=== PATIENT | male | born 2000 | race African-American/Black ===

== ENCOUNTER 2022-01-18 23:35 | Emergency (ER) | payer OTHER, MEDICAID ==
[~2022-01-18] VITALS: Ht 175.3 cm; Wt 68.0 kg
[2022-01-19] MEDS ORDERED: IBUPROFEN 600MG TABLET PO ONE (02:30)
[2022-01-19] MEDS ORDERED: BACITRACIN ZINC OINT UDPKT TOP ONE (02:30)
[2022-01-19] MEDS ORDERED: IBUP-2028 MT (03:58)
[2022-01-19 04:38] VITALS: BP 112/78
== END 2022-01-19 04:39 | disposition home or self-care (01) ==
LOC: ER 23:35
DX: S71.032A Puncture wound without foreign body, left hip, initial encounter (principal); W34.09XA Accidental discharge from other specified firearms, initial encounter; Y93.89 Activity, other specified; Y92.89 Other specified places as the place of occurrence of the external cause; Y99.8 Other external cause status
CPT/HCPCS: 72170; 99283

== ENCOUNTER 2022-01-25 09:01 | Emergency (ER) | payer OTHER, MEDICAID ==
[~2022-01-25] VITALS: Ht 182.9 cm; Wt 60.0 kg
[~2022-01-25 09:01] MED LIST: IBUP-2028 MT
[2022-01-25] MEDS ORDERED: ONDANSETRON HCL 4MG/2ML INJ IM ONE (09:30)
[2022-01-25] MEDS ORDERED: KETOROLAC 60MG/2ML VIAL IM ONE (09:30)
[2022-01-25 09:42] VITALS: BP 117/80
[2022-01-25] MEDS ORDERED: ONDANSETRON HCL 4MG/2ML INJ IM NR (09:45)
[2022-01-25] MEDS ORDERED: METO-293 MT (10:43)
== END 2022-01-25 11:49 | disposition home or self-care (01) ==
LOC: ER 09:01
DX: R10.13 Epigastric pain (principal); R11.2 Nausea with vomiting, unspecified; F12.90 Cannabis use, unspecified, uncomplicated; F10.90 Alcohol use, unspecified, uncomplicated; Y90.9 Presence of alcohol in blood, level not specified
CPT/HCPCS: 82962; 96372; 99284; J1885; J2405

== ENCOUNTER 2022-09-12 07:58 | Emergency (ER) | payer MEDICAID, OTHER ==
[~2022-09-12] VITALS: Ht 175.3 cm; Wt 68.0 kg
[~2022-09-12 07:58] MED LIST changes: +METO-293 MT
[2022-09-12 08:05] VITALS: BP 126/90
[2022-09-12] MEDS ORDERED: ONDANSETRON 4MG ODT PO STA (08:20)
[2022-09-12 08:55] LABS: BASOPHILS % 0.7 % (0.0-2.0); EOSINOPHILS % 0.4 % (0.0-5.0); HEMATOCRIT. 52.8 % (42.0-52.0); HEMOGLOBIN. 17.6 g/dL (14.0-18.0); LYMPHOCYTES % 22.5 % (20.0-50.0); MEAN CORPUSCULAR HEMOGLOBIN 27.5 pg (28.0-32.0); MEAN CORPUSCULAR VOLUME 82.2 fL (80.0-94.0); MEAN PLATELET VOLUME 6.8 fl (7.4-10.4); NEUTROPHILS % 69.4 % (40.0-76.0); PLATELET 368 x1000/uL (130-400); RED BLOOD CELL COUNT 6.42 mill/uL (4.7-6.1); RED CELL DISTRIBUTION WIDTH 14.8 % (11.6-14.6)
[2022-09-12 09:00] LABS: CHLORIDE 94 mEq/L (98-107)
[2022-09-12] MEDS ORDERED: MAGNESIUM/ALUMINUM HYDROXIDE/SIMETHICONE 30ML UDC PO STA (09:30)
[2022-09-12] MEDS ORDERED: DICYCLOMINE 10 MG/5 ML ORAL SYR PO STA (09:30)
[2022-09-12] MEDS ORDERED: VISCOUS LIDOCAINE 2% 15 ML UDC PO STA (09:30)
[2022-09-12] MEDS ORDERED: ONDA4TAB11 PO (09:34)
== END 2022-09-12 10:23 | disposition home or self-care (01) ==
LOC: ER 08:19
DX: K29.70 Gastritis, unspecified, without bleeding (principal); F12.10 Cannabis abuse, uncomplicated
CPT/HCPCS: 36415; 80053; 83690; 85025; 99283; Q0162

== ENCOUNTER 2022-09-12 17:22 | Emergency (ER) | payer MEDICAID ==
[~2022-09-12] VITALS: Ht 175.3 cm; Wt 68.0 kg
[~2022-09-12 17:22] MED LIST changes: +ONDA4TAB11 PO
[2022-09-12 17:35] VITALS: BP 135/99; PULSE 94; RESP 20; TEMP 98.6; O2SAT 100
[2022-09-12 19:24] LABS: BASOPHILS % 0.5 % (0.0-2.0); EOSINOPHILS % 0.1 % (0.0-5.0); HEMATOCRIT. 52.4 % (42.0-52.0); HEMOGLOBIN. 17.3 g/dL (14.0-18.0); LYMPHOCYTES % 27.4 % (20.0-50.0); MEAN CORPUSCULAR HEMOGLOBIN 27.5 pg (28.0-32.0); MEAN CORPUSCULAR VOLUME 83.4 fL (80.0-94.0); MEAN PLATELET VOLUME 6.8 fl (7.4-10.4); MONOCYTES % 10.4 % (2.0-8.0); NEUTROPHILS % 61.6 % (40.0-76.0); PLATELET 357 x1000/uL (130-400); RED BLOOD CELL COUNT 6.28 mill/uL (4.7-6.1); RED CELL DISTRIBUTION WIDTH 14.7 % (11.6-14.6)
[2022-09-12 19:30] LABS: CHLORIDE 91 mEq/L (98-107)
[2022-09-12 19:35] LABS: ETHANOL BLOOD < 10 mg/dL (-10)
== END 2022-09-12 23:29 | disposition left against medical advice (07) ==
LOC: ER 17:22
DX: Z53.21 Procedure and treatment not carried out due to patient leaving prior to being seen by health care provider (principal)
CPT/HCPCS: 36415; 80053; 80320; 85025; 99281; G0480

== ENCOUNTER 2023-04-06 15:13 | Emergency (ER) | payer MEDICAID ==
[~2023-04-06] VITALS: Ht 182.9 cm; Wt 68.0 kg
[~2023-04-06 15:13] MED LIST changes: +ONDA4TAB50 PO; +TOPUD PO
[2023-04-06 15:23] VITALS: BP 120/76; PULSE 51; RESP 20; TEMP 98; O2SAT 99
[2023-04-06 16:11] LABS: BASOPHILS % 0.4 % (0.0-2.0); EOSINOPHILS % 0.1 % (0.0-5.0); HEMATOCRIT. 49.1 % (42.0-52.0); HEMOGLOBIN. 16.2 g/dL (14.0-18.0); LYMPHOCYTES % 7.6 % (20.0-50.0); MEAN CORPUSCULAR HEMOGLOBIN 27.1 pg (28.0-32.0); MEAN CORPUSCULAR HGB CONC 32.9 g/dL (31.0-37.0); MEAN CORPUSCULAR VOLUME 82.4 fL (80.0-94.0); MEAN PLATELET VOLUME 7.3 fl (7.4-10.4); MONOCYTES % 5.3 % (2.0-8.0); NEUTROPHILS % 86.6 % (40.0-76.0); PLATELET 311 x1000/uL (130-400); RED BLOOD CELL COUNT 5.97 mill/uL (4.7-6.1); RED CELL DISTRIBUTION WIDTH 15.6 % (11.6-14.6); WHITE BLOOD COUNT 14.7 x1000/uL (4.5-11.0)
[2023-04-06 16:32] LABS: ALANINE AMINOTRANSFERASE 11 IU/L (10-49); ALBUMIN 5.3 g/dL (3.2-4.8); ASPARTATE AMINOTRANSFERASE 31 IU/L (<34); BILIRUBIN TOTAL 2.3 mg/dL (0.1-1.0); CALCIUM 10.6 mg/dL (8.7-10.4); CARBON DIOXIDE 29 mEq/L (21-32); CHLORIDE 100 mEq/L (98-107); CREATININE 1.2 mg/dL (0.6-1.3); GLUCOSE 137 mg/dL (70-105); POTASSIUM 3.9 mEq/L (3.5-5.1); PROTEIN TOTAL 8.3 g/dL (6.0-8.3); SODIUM 139 mEq/L (136-145); UREA NITROGEN BLOOD 11 mg/dL (9-23)
[2023-04-06 17:21] LABS: CLARITY URINE CLEAR (CLEAR); COLOR URINE DARK YELLOW (YELLOW); GLUCOSE URINE NEGATIVE (NEGATIVE); KETONES URINE 2+ (NEGATIVE); LEUKOCYTE ESTERASE URINE TRACE (NEGATIVE); NITRITE URINE NEGATIVE (NEGATIVE); OCCULT BLOOD URINE NEGATIVE (NEGATIVE); PH URINE 6.5 (4.5-8.0); PROTEIN URINE 2+ (NEGATIVE); SPECIFIC GRAVITY URINE 1.043 (1.005-1.030)
[2023-04-06 17:42] LABS: BACTERIA URINE TRACE; RBC URINE NONE SEEN /hpf (0-2); SQUAMOUS EPITHELIAL CELL URINE RARE /lpf (RARE/1+)
[2023-04-06 17:43] LABS: WBC URINE 0-2 /hpf (0-2)
[2023-04-06] MEDS ORDERED: MAGNESIUM/ALUMINUM HYDROXIDE/SIMETHICONE 30ML UDC PO STA (19:08)
[2023-04-06] MEDS ORDERED: ONDANSETRON 4MG ODT PO STA (19:08)
[2023-04-06] MEDS ORDERED: FAMOTIDINE 20MG TABLET PO SCH (21:00)
== END 2023-04-06 19:58 | disposition left against medical advice (07) ==
LOC: ER 15:25
DX: A08.4 Viral intestinal infection, unspecified (principal); I49.9 Cardiac arrhythmia, unspecified
CPT/HCPCS: 36415; 71045; 80053; 81003; 85025; 86850; 86900; 93005; 99285

== ENCOUNTER 2023-04-07 19:02 | Emergency (ER) | payer MEDICAID ==
[~2023-04-07] VITALS: Ht 182.9 cm; Wt 82.0 kg
[2023-04-07 19:09] VITALS: BP 130/76; PULSE 85; RESP 16; TEMP 98.5; O2SAT 98
[2023-04-07 19:57] LABS: INR 1.1; PROTHROMBIN TIME 11.6 sec (9.6-11.0)
[2023-04-07 20:05] LABS: ALANINE AMINOTRANSFERASE 13 IU/L (10-49); ASPARTATE AMINOTRANSFERASE 36 IU/L (<34); CARBON DIOXIDE 28 mEq/L (21-32); CHLORIDE 98 mEq/L (98-107); CREATININE 1.2 mg/dL (0.6-1.3); GLUCOSE 142 mg/dL (70-105); POTASSIUM 3.3 mEq/L (3.5-5.1); PROTEIN TOTAL 8.3 g/dL (6.0-8.3); SODIUM 135 mEq/L (136-145); TROPONIN I HIGH SENSITIVITY 10 ng/L (3.0-53); UREA NITROGEN BLOOD 13 mg/dL (9-23)
[2023-04-07 20:55] LABS: BASOPHILS % 1.2 % (0.0-2.0); EOSINOPHILS % 0.1 % (0.0-5.0); HEMATOCRIT. 49.8 % (42.0-52.0); HEMOGLOBIN. 16.3 g/dL (14.0-18.0); LYMPHOCYTES % 20.5 % (20.0-50.0); MEAN CORPUSCULAR HEMOGLOBIN 27.2 pg (28.0-32.0); MEAN CORPUSCULAR HGB CONC 32.8 g/dL (31.0-37.0); MEAN PLATELET VOLUME 7.5 fl (7.4-10.4); MONOCYTES % 8.8 % (2.0-8.0); NEUTROPHILS % 69.4 % (40.0-76.0); PLATELET 327 x1000/uL (130-400); RED CELL DISTRIBUTION WIDTH 15.5 % (11.6-14.6); WHITE BLOOD COUNT 12.1 x1000/uL (4.5-11.0)
[2023-04-08] MEDS ORDERED: ONDANSETRON HCL 4MG TABLET PO ONE (01:15)
[2023-04-08] MEDS ORDERED: ONDANSETRON 4MG ODT PO ONE (01:30)
[2023-04-08] MEDS ORDERED: ONDANSETRON 4MG ODT PO NR (03:45)
[2023-04-08] MEDS ORDERED: ONDA4TAB50 MT (04:21)
== END 2023-04-08 04:30 | disposition home or self-care (01) ==
LOC: ER 19:02
DX: B34.9 Viral infection, unspecified (principal); Z79.899 Other long term (current) drug therapy
CPT/HCPCS: 99284; 80053; 85025; 85610; 84484; 36415; 93005; Q0162

== ENCOUNTER 2023-05-20 05:49 | Emergency (ER) | payer MEDICAID ==
[~2023-05-20] VITALS: Ht 180.3 cm; Wt 68.0 kg
[~2023-05-20 05:49] MED LIST changes: +ONDA4TAB50 MT
[2023-05-20 05:53] VITALS: PULSE 101
[2023-05-20 05:59] VITALS: BP 135/100; RESP 18; TEMP 98.3; O2SAT 100
[2023-05-20] MEDS: DIPHENHYDRAMINE 50MG/ML VIAL IV ONE (06:15)
[2023-05-20] MEDS: SODIUM CHLORIDE 0.9% 1,000 ML IV ONE (06:15)
[2023-05-20 06:34] LABS: BASOPHILS % 0.8 % (0.0-2.0); EOSINOPHILS % 1.1 % (0.0-5.0); HEMATOCRIT. 46.7 % (42.0-52.0); HEMOGLOBIN. 15.4 g/dL (14.0-18.0); LYMPHOCYTES % 23.2 % (20.0-50.0); MEAN CORPUSCULAR HEMOGLOBIN 28.1 pg (28.0-32.0); MEAN CORPUSCULAR VOLUME 85.1 fL (80.0-94.0); MEAN PLATELET VOLUME 6.9 fl (7.4-10.4); MONOCYTES % 5.7 % (2.0-8.0); NEUTROPHILS % 69.2 % (40.0-76.0); PLATELET 309 x1000/uL (130-400); RED BLOOD CELL COUNT 5.48 mill/uL (4.7-6.1); RED CELL DISTRIBUTION WIDTH 15.7 % (11.6-14.6); WHITE BLOOD COUNT 7.4 x1000/uL (4.5-11.0)
[2023-05-20 06:41] LABS: ALANINE AMINOTRANSFERASE 17 IU/L (10-49); ALBUMIN 5.1 g/dL (3.2-4.8); ASPARTATE AMINOTRANSFERASE 27 IU/L (<34); BILIRUBIN TOTAL 1.6 mg/dL (0.1-1.0); CALCIUM 10.1 mg/dL (8.7-10.4); CARBON DIOXIDE 25 mEq/L (21-32); CHLORIDE 105 mEq/L (98-107); CREATININE 1.1 mg/dL (0.6-1.3); GLUCOSE 112 mg/dL (70-105); POTASSIUM 3.6 mEq/L (3.5-5.1); PROTEIN TOTAL 8.1 g/dL (6.0-8.3); SODIUM 142 mEq/L (136-145); UREA NITROGEN BLOOD 10 mg/dL (9-23)
[2023-05-20 06:45] LABS: ETHANOL BLOOD < 10 mg/dL (<10)
[2023-05-20 06:46] LABS: PROTHROMBIN TIME 11.3 sec (9.6-11.0)
[2023-05-20] MEDS: PANTOPRAZOLE SODIUM 40 MG/VIAL IV ONE (07:08)
[2023-05-20] MEDS: PROCHLORPERAZINE 10MG/2ML VIAL IV ONE (07:08)
[2023-05-20] MEDS: HALOPERIDOL LACTATE 5MG/ML VIAL IM ONE ×2 (09:15→11:45)
[2023-05-20 10:03] LABS: CLARITY URINE TURBID (CLEAR); COLOR URINE DARK YELLOW (YELLOW); GLUCOSE URINE NEGATIVE (NEGATIVE); KETONES URINE 3+ (NEGATIVE); LEUKOCYTE ESTERASE URINE TRACE (NEGATIVE); NITRITE URINE NEGATIVE (NEGATIVE); OCCULT BLOOD URINE NEGATIVE (NEGATIVE); PH URINE 7.5 (4.5-8.0); PROTEIN URINE TRACE (NEGATIVE); SPECIFIC GRAVITY URINE 1.032 (1.005-1.030)
[2023-05-20 10:12] LABS: AMORPHOUS SEDIMENT URINE 3+ /lpf; MUCUS URINE 3+ /lpf (NONE/TRACE)
[2023-05-20 10:13] LABS: RBC URINE NONE SEEN /hpf (0-2); SQUAMOUS EPITHELIAL CELL URINE NONE SEEN /lpf (RARE/1+); WBC URINE 0-2 /hpf (0-2)
[2023-05-20 10:14] LABS: BACTERIA URINE TRACE
[2023-05-20 10:24] LABS: *AMPHETAMINES SCREEN URINE NEGATIVE (NEGATIVE); *BARBITURATES SCREEN URINE NEGATIVE (NEGATIVE); *BENZODIAZEPINES SCREEN URINE NEGATIVE (NEGATIVE); *COCAINE SCREEN URINE NEGATIVE (NEGATIVE); CANNABINOID URINE SCREEN PRESUMPTIVE POSITIVE (NEGATIVE); ECSTASY MDMA SCREEN URINE NEGATIVE (NEGATIVE); METHADONE URINE SCREEN Neg (NEGATIVE); OPIATES URINE SCREEN NEGATIVE (NEGATIVE); PHENCYCLIDINE URINE SCREEN NEGATIVE (NEGATIVE)
[2023-05-20] MEDS ORDERED: METO5TAB86 MT (11:26)
[2023-05-20] MEDS: LORAZEPAM 2MG/ML INJ IV ONE (12:49)
[2023-05-21] MEDS ORDERED: CAPS60CR3 TP (15:32)
== END 2023-05-20 12:51 | disposition home or self-care (01) ==
LOC: ER 06:12
DX: R11.2 Nausea with vomiting, unspecified (principal)
CPT/HCPCS: 80053; 80305; 81003; 80320; 83690; 85025; 85610; 36415; 74176; 96361; 96365; 96366; 96372; 96375; 99285; J1200; J1630; C9113; J0780; J7030; Z7610; G0480

== ENCOUNTER 2023-05-21 08:47 | Emergency (ER) | payer MEDICAID ==
[~2023-05-21] VITALS: Ht 177.8 cm; Wt 66.0 kg
[~2023-05-21 08:47] MED LIST changes: +METO5TAB86 MT
[2023-05-21 08:51] VITALS: BP 144/75; PULSE 67; RESP 16; TEMP 98.6; O2SAT 100
[2023-05-21 10:35] LABS: BASOPHILS % 0.7 % (0.0-2.0); EOSINOPHILS % 0.2 % (0.0-5.0); HEMATOCRIT. 47.2 % (42.0-52.0); HEMOGLOBIN. 15.1 g/dL (14.0-18.0); LYMPHOCYTES % 13.2 % (20.0-50.0); MEAN CORPUSCULAR HEMOGLOBIN 26.6 pg (28.0-32.0); MEAN CORPUSCULAR HGB CONC 31.9 g/dL (31.0-37.0); MEAN CORPUSCULAR VOLUME 83.4 fL (80.0-94.0); MONOCYTES % 5.5 % (2.0-8.0); NEUTROPHILS % 80.4 % (40.0-76.0); PLATELET 321 x1000/uL (130-400); RED BLOOD CELL COUNT 5.66 mill/uL (4.7-6.1); RED CELL DISTRIBUTION WIDTH 15.3 % (11.6-14.6); WHITE BLOOD COUNT 12.8 x1000/uL (4.5-11.0)
[2023-05-21 10:53] LABS: ALANINE AMINOTRANSFERASE 15 IU/L (10-49); ALBUMIN 4.9 g/dL (3.2-4.8); ASPARTATE AMINOTRANSFERASE 49 IU/L (<34); BILIRUBIN TOTAL 1.7 mg/dL (0.1-1.0); CALCIUM 9.8 mg/dL (8.7-10.4); CARBON DIOXIDE 25 mEq/L (21-32); CHLORIDE 101 mEq/L (98-107); GLUCOSE 111 mg/dL (70-105); POTASSIUM 3.9 mEq/L (3.5-5.1); PROTEIN TOTAL 7.3 g/dL (6.0-8.3); SODIUM 136 mEq/L (136-145); UREA NITROGEN BLOOD 7 mg/dL (9-23)
[2023-05-21] MEDS: HALOPERIDOL LACTATE 5MG/ML VIAL IM ONE (13:41)
[2023-05-21] MEDS: PANTOPRAZOLE SODIUM 40 MG/VIAL IV ONE (13:42)
[2023-05-21] MEDS: SODIUM CHLORIDE 0.9% 1,000 ML IV ONE (13:42)
[2023-05-21] MEDS: CAPSAICIN 0.075% CREAM 60GM TOP PRN (13:42)
[2023-05-21] MEDS: DIPHENHYDRAMINE 50MG/ML VIAL IV ONE (13:42)
[2023-05-21] MEDS ORDERED: CAPS60CR3 TP (15:32)
[2023-05-22] MEDS ORDERED: DICY-18 MT (02:07)
== END 2023-05-21 15:49 | disposition home or self-care (01) ==
LOC: ER 08:47
DX: R11.2 Nausea with vomiting, unspecified (principal); F19.90 Other psychoactive substance use, unspecified, uncomplicated
CPT/HCPCS: 99284; 96365; 96375; 80053; 83690; 85025; 36415; 96372; J1200; J1630; C9113; J7030

== ENCOUNTER 2023-05-21 19:02 | Emergency (ER) | payer MEDICAID ==
[~2023-05-21] VITALS: Ht 180.3 cm; Wt 66.0 kg
[~2023-05-21 19:02] MED LIST changes: +CAPS60CR3 TP
[2023-05-21 19:08] VITALS: O2SAT 100
[2023-05-21 19:52] LABS: BASOPHILS % 0.5 % (0.0-2.0); EOSINOPHILS % 0.3 % (0.0-5.0); HEMATOCRIT. 45.3 % (42.0-52.0); HEMOGLOBIN. 14.5 g/dL (14.0-18.0); LYMPHOCYTES % 16.8 % (20.0-50.0); MEAN CORPUSCULAR HEMOGLOBIN 27.2 pg (28.0-32.0); MEAN CORPUSCULAR VOLUME 85.2 fL (80.0-94.0); MEAN PLATELET VOLUME 6.7 fl (7.4-10.4); MONOCYTES % 6.8 % (2.0-8.0); NEUTROPHILS % 75.6 % (40.0-76.0); PLATELET 301 x1000/uL (130-400); RED BLOOD CELL COUNT 5.31 mill/uL (4.7-6.1); RED CELL DISTRIBUTION WIDTH 15.1 % (11.6-14.6); WHITE BLOOD COUNT 11.4 x1000/uL (4.5-11.0)
[2023-05-21 20:07] LABS: ALANINE AMINOTRANSFERASE 15 IU/L (10-49); ALBUMIN 4.5 g/dL (3.2-4.8); ASPARTATE AMINOTRANSFERASE 36 IU/L (<34); BILIRUBIN TOTAL 1.7 mg/dL (0.1-1.0); CALCIUM 9.5 mg/dL (8.7-10.4); CARBON DIOXIDE 25 mEq/L (21-32); CHLORIDE 104 mEq/L (98-107); GLUCOSE 114 mg/dL (70-105); POTASSIUM 3.9 mEq/L (3.5-5.1); PROTEIN TOTAL 6.8 g/dL (6.0-8.3); SODIUM 138 mEq/L (136-145); UREA NITROGEN BLOOD 7 mg/dL (9-23)
[2023-05-21] MEDS ORDERED: DICYCLOMINE 10 MG/5 ML ORAL SYR PO STA (20:24)
[2023-05-21 21:08] LABS: CLARITY URINE CLEAR (CLEAR); COLOR URINE DARK YELLOW (YELLOW); GLUCOSE URINE NEGATIVE (NEGATIVE); KETONES URINE 3+ (NEGATIVE); LEUKOCYTE ESTERASE URINE TRACE (NEGATIVE); NITRITE URINE NEGATIVE (NEGATIVE); OCCULT BLOOD URINE NEGATIVE (NEGATIVE); PH URINE 6.5 (4.5-8.0); PROTEIN URINE 1+ (NEGATIVE); SPECIFIC GRAVITY URINE 1.032 (1.005-1.030)
[2023-05-21] MEDS: ONDANSETRON 4MG ODT PO STA (21:37)
[2023-05-21] MEDS: MAGNESIUM/ALUMINUM HYDROXIDE/SIMETHICONE 30ML UDC PO STA (21:37)
[2023-05-21] MEDS: FAMOTIDINE 20MG TABLET PO ONE (21:37)
[2023-05-21] MEDS: DICYCLOMINE HCL 10MG CAPSULE PO NR (21:37)
[2023-05-21 21:59] LABS: WBC URINE 0-2 /hpf (0-2)
[2023-05-21 22:00] LABS: BACTERIA URINE TRACE; MUCUS URINE 1+ /lpf (NONE/TRACE); SQUAMOUS EPITHELIAL CELL URINE FEW /lpf (RARE/1+)
[2023-05-21] MEDS: KETOROLAC 30MG/ML VIAL IM ONE (23:15)
[2023-05-22] MEDS ORDERED: DICY-18 MT (02:07)
[2023-05-22] MEDS: HALOPERIDOL LACTATE 5MG/ML VIAL IM ONE (02:42)
[2023-05-22] MEDS: DIPHENHYDRAMINE 50MG/ML VIAL IM ONE (02:42)
[2023-05-22 02:45] VITALS: BP 147/76; PULSE 66; RESP 16; TEMP 97.7
== END 2023-05-22 02:46 | disposition home or self-care (01) ==
LOC: ER 19:02
DX: R11.2 Nausea with vomiting, unspecified (principal); R10.9 Unspecified abdominal pain; F12.90 Cannabis use, unspecified, uncomplicated; F19.90 Other psychoactive substance use, unspecified, uncomplicated
CPT/HCPCS: 99284; 80053; 81003; 83690; 85025; 36415; 96372 ×2; Q0162; J1885; J1200; J1630

== ENCOUNTER 2023-12-20 10:27 | Emergency (ER) | payer MEDICAID ==
[~2023-12-20] VITALS: Ht 177.8 cm; Wt 68.0 kg
[~2023-12-20 10:27] MED LIST changes: +DICY-18 MT; +ONDA-239 PO; -ONDA4TAB11 PO
[2023-12-20 10:32] VITALS: TEMP 98; O2SAT 99
[2023-12-20] MEDS ORDERED: ACETAMINOPHEN 325MG TABLET PO STA (11:37)
[2023-12-20] MEDS ORDERED: FAMOTIDINE 20MG TABLET PO ONE (11:45)
[2023-12-20] MEDS ORDERED: ONDANSETRON HCL 4MG/2ML INJ IM ONE (11:45)
[2023-12-20 12:11] LABS: CLARITY URINE CLEAR (CLEAR); COLOR URINE DARK YELLOW (YELLOW); GLUCOSE URINE NEGATIVE (NEGATIVE); KETONES URINE 2+ (NEGATIVE); LEUKOCYTE ESTERASE URINE NEGATIVE (NEGATIVE); NITRITE URINE NEGATIVE (NEGATIVE); OCCULT BLOOD URINE TRACE (NEGATIVE); PH URINE 5.5 (4.5-8.0); PROTEIN URINE 1+ (NEGATIVE); SPECIFIC GRAVITY URINE 1.038 (1.005-1.030)
[2023-12-20 12:26] LABS: BACTERIA URINE 1+; MUCUS URINE 1+ /lpf (NONE/TRACE); RBC URINE NONE SEEN /hpf (0-2); SQUAMOUS EPITHELIAL CELL URINE NONE SEEN /lpf (RARE/1+); WBC URINE 0-2 /hpf (0-2); YEAST URINE NONE SEEN
[2023-12-20 12:28] LABS: BASOPHILS % 0.7 % (0.0-2.0); EOSINOPHILS % 0.2 % (0.0-5.0); HEMATOCRIT. 51.5 % (42.0-52.0); HEMOGLOBIN. 16.9 g/dL (14.0-18.0); MEAN CORPUSCULAR HEMOGLOBIN 27.2 pg (28.0-32.0); MEAN CORPUSCULAR HGB CONC 32.8 g/dL (31.0-37.0); MEAN CORPUSCULAR VOLUME 82.8 fL (80.0-94.0); MEAN PLATELET VOLUME 7.2 fl (7.4-10.4); MONOCYTES % 9.9 % (2.0-8.0); NEUTROPHILS % 64.2 % (40.0-76.0); PLATELET 288 x1000/uL (130-400); RED BLOOD CELL COUNT 6.22 mill/uL (4.7-6.1); RED CELL DISTRIBUTION WIDTH 14.7 % (11.6-14.6); WHITE BLOOD COUNT 11.3 x1000/uL (4.5-11.0)
[2023-12-20 12:33] LABS: CHLORIDE 95 mEq/L (98-107); POTASSIUM 3.4 mEq/L (3.5-5.1); SODIUM 134 mEq/L (136-145)
[2023-12-20 12:34] LABS: CARBON DIOXIDE 31 mEq/L (21-32)
[2023-12-20 12:35] LABS: CALCIUM 10.2 mg/dL (8.7-10.4)
[2023-12-20 12:40] LABS: GLUCOSE 97 mg/dL (70-105); UREA NITROGEN BLOOD 14 mg/dL (9-23)
[2023-12-20 13:18] LABS: CREATININE 1.3 mg/dL (0.6-1.3)
[2023-12-20] MEDS ORDERED: ONDA4TAB50 PO (14:30)
[2023-12-20] MEDS ORDERED: CLOT15CR27 TP (14:30)
[2023-12-20] MEDS ORDERED: FAMO20TA8 MT (14:30)
[2023-12-20 14:47] VITALS: BP 135/79; PULSE 93; RESP 16; O2SAT 98
[2023-12-20] MEDS: ONDANSETRON HCL 4MG/2ML INJ IM NR (14:47)
[2023-12-20] MEDS: FAMOTIDINE 20MG TABLET PO NR (14:47)
[2023-12-20] MEDS: ACETAMINOPHEN 325MG TABLET PO NR (14:47)
[2023-12-23 08:08] LABS: CHLAMYDIA TRACHOMATIS NAA Negative (Negative); NEISSERIA GONORRHOEAE NAA Negative (Negative)
== END 2023-12-20 14:49 | disposition home or self-care (01) ==
LOC: ER 10:41
DX: K29.00 Acute gastritis without bleeding (principal); N48.1 Balanitis; J45.909 Unspecified asthma, uncomplicated; Z79.899 Other long term (current) drug therapy
CPT/HCPCS: 99283; 87491; 87591; 80048; 81003; 85025; 87086; 36415; 96372; J2405

== ENCOUNTER 2024-02-27 00:44 | Emergency (ER) | payer MEDICAID ==
[~2024-02-27] VITALS: Ht 177.8 cm; Wt 68.3 kg
[~2024-02-27 00:44] MED LIST changes: +CLOT15CR27 TP; +FAMO20TA8 MT
[2024-02-27 01:00] VITALS: BP 118/63; PULSE 67; RESP 17; TEMP 97.9; O2SAT 100
[2024-02-27] MEDS ORDERED: IBUP-2029 MT (02:23)
== END 2024-02-27 02:44 | disposition home or self-care (01) ==
LOC: ER 00:44
DX: M25.531 Pain in right wrist (principal); J45.909 Unspecified asthma, uncomplicated; Z79.899 Other long term (current) drug therapy
CPT/HCPCS: 29125; 73110; 99283; A4565

== ENCOUNTER 2024-03-07 09:11 | Emergency (ER) | payer MEDICAID ==
[~2024-03-07] VITALS: Ht 177.8 cm; Wt 68.0 kg
[~2024-03-07 09:11] MED LIST changes: +IBUP-2029 MT
[2024-03-07 09:23] VITALS: TEMP 98.3; O2SAT 99
[2024-03-07] MEDS: ONDANSETRON 4MG ODT PO NR (10:01)
[2024-03-07 10:35] LABS: CHLORIDE 85 mEq/L (98-107); SODIUM 130 mEq/L (136-145)
[2024-03-07 10:36] LABS: CALCIUM 10.1 mg/dL (8.7-10.4); CARBON DIOXIDE 39 mEq/L (21-32); PROTHROMBIN TIME 11.4 sec (9.6-11.0)
[2024-03-07 10:39] LABS: HEMATOCRIT. 54.3 % (42.0-52.0); MEAN CORPUSCULAR HEMOGLOBIN 27.9 pg (28.0-32.0); MEAN CORPUSCULAR HGB CONC 33.2 g/dL (31.0-37.0); MEAN PLATELET VOLUME 7.2 fl (7.4-10.4); PLATELET 332 x1000/uL (130-400); RED BLOOD CELL COUNT 6.47 mill/uL (4.7-6.1)
[2024-03-07 10:41] LABS: CREATININE 1.4 mg/dL (0.6-1.3); GLUCOSE 120 mg/dL (70-105); UREA NITROGEN BLOOD 16 mg/dL (9-23)
[2024-03-07 10:43] LABS: ALANINE AMINOTRANSFERASE 14 IU/L (10-49); ALBUMIN 5.1 g/dL (3.2-4.8); ASPARTATE AMINOTRANSFERASE 24 IU/L (<34); BILIRUBIN DIRECT 0.4 mg/dL (<=3.0)
[2024-03-07 10:44] LABS: BILIRUBIN TOTAL 1.6 mg/dL (0.1-1.0); PROTEIN TOTAL 8.3 g/dL (6.0-8.3)
[2024-03-07 10:57] LABS: DIFFERENTIAL COMMENT 1
[2024-03-07] MEDS: CALCIUM GLUCONATE 1GM PREMIX 50 ML IV ONE (11:27)
[2024-03-07] MEDS: ONDANSETRON HCL 4MG/2ML INJ IV ONE (11:27)
[2024-03-07 11:58] LABS: PLATELET ESTIMATE NORMAL
[2024-03-07 14:33] VITALS: O2SAT 100
[2024-03-07] MEDS: KCL 10MEQ/50ML PREMIX 50 ML IV NR ×2 (14:33→15:32)
[2024-03-07 16:48] VITALS: BP 131/89; PULSE 74; RESP 9
== END 2024-03-07 17:10 | disposition left against medical advice (07) ==
LOC: ER 09:11 → EDBEDREQ 14:35 → EDBEDREQTM 14:35 → ER 17:10
DX: E87.6 Hypokalemia (principal); F12.90 Cannabis use, unspecified, uncomplicated
CPT/HCPCS: 80076; 80048; 83690; 85025; 85610; 36415; 70450; 74176; 93005; 96365; 96375; 99291; Q0162; J0610; J2405; J3480; Z7610 ×2

== ENCOUNTER 2024-06-21 20:08 | Inpatient (IN) | payer MEDICAID ==
[~2024-06-21] VITALS: Ht 175.3 cm; Wt 68.2 kg
[2024-06-21 20:18] VITALS: O2SAT 100
[2024-06-21 20:46] LABS: BASOPHILS % 0.7 % (0.0-2.0); EOSINOPHILS % 0.1 % (0.0-5.0); HEMATOCRIT. 48.7 % (42.0-52.0); LYMPHOCYTES % 19.1 % (20.0-50.0); MEAN CORPUSCULAR HGB CONC 32.9 g/dL (31.0-37.0); MEAN PLATELET VOLUME 6.9 fl (7.4-10.4); MONOCYTES % 9.2 % (2.0-8.0); NEUTROPHILS % 70.9 % (40.0-76.0); PLATELET 285 x1000/uL (130-400); RED BLOOD CELL COUNT 5.72 mill/uL (4.7-6.1); RED CELL DISTRIBUTION WIDTH 14.4 % (11.6-14.6); WHITE BLOOD COUNT 9.7 x1000/uL (4.5-11.0)
[2024-06-21] MEDS ORDERED: DICYCLOMINE 10 MG/5 ML ORAL SYR PO STA (20:47)
[2024-06-21 20:49] LABS: CHLORIDE 95 mEq/L (98-107); POTASSIUM 3.1 mEq/L (3.5-5.1); SODIUM 138 mEq/L (136-145)
[2024-06-21 20:50] LABS: CALCIUM 9.7 mg/dL (8.7-10.4); CARBON DIOXIDE 33 mEq/L (21-32)
[2024-06-21 20:55] LABS: CREATININE 1.3 mg/dL (0.6-1.3); GLUCOSE 126 mg/dL (70-105); UREA NITROGEN BLOOD 13 mg/dL (9-23)
[2024-06-21 20:57] LABS: ALANINE AMINOTRANSFERASE 20 IU/L (10-49); ALBUMIN 4.7 g/dL (3.2-4.8); ASPARTATE AMINOTRANSFERASE 44 IU/L (<34); BILIRUBIN DIRECT 0.4 mg/dL (<=3.0); BILIRUBIN TOTAL 1.5 mg/dL (0.1-1.0); PROTEIN TOTAL 7.7 g/dL (6.0-8.3)
[2024-06-21] MEDS: KETOROLAC 30MG/ML VIAL IV STA (21:03)
[2024-06-21] MEDS: ONDANSETRON HCL 4MG/2ML INJ IV STA (21:03)
[2024-06-21] MEDS: DICYCLOMINE HCL 10MG CAPSULE PO NR (21:03)
[2024-06-22 00:15] LABS: INR 1.1; PROTHROMBIN TIME 11.8 sec (9.6-11.0)
[2024-06-22 03:41] VITALS: BP 147/107; PULSE 62; RESP 20; TEMP 37.1
[2024-06-22] MEDS ORDERED: NA PHOS,M-B/NA PHOS,DI-BA ENEMA 118ML PR PRN (04:30)
[2024-06-22] MEDS ORDERED: MAGNESIUM/ALUMINUM HYDROXIDE/SIMETHICONE 30ML UDC PO PRN (04:30)
[2024-06-22] MEDS ORDERED: ACETAMINOPHEN 325MG TABLET PO PRN ×2 (04:30)
[2024-06-22] MEDS ORDERED: IPRATROPIUM/ALBUTEROL 0.5-3(2.5)MG/3ML NEB HHN PRN (04:30)
[2024-06-22] MEDS ORDERED: CLONIDINE 0.1MG TABLET PO PRN (04:30)
[2024-06-22] MEDS: ONDANSETRON HCL 4MG/2ML INJ IV PRN (05:39)
[2024-06-22] MEDS: POTASSIUM CHLORIDE 20MEQ TABLET SR PO NR (05:39)
[2024-06-22] MEDS: PANTOPRAZOLE SODIUM 40 MG/VIAL IV SCH ×2 (05:40→20:34)
[2024-06-22] MEDS: PIPERACILLIN/TAZO 3.375G/50ML 50 ML IV SCH (05:40)
[2024-06-22] MEDS: SODIUM CHLORIDE 0.9% 1,000 ML IV SCH (05:41)
[2024-06-22 06:14] VITALS: BP 126/78; PULSE 65; RESP 18; TEMP 36.7; O2SAT 98
[2024-06-22] MEDS ORDERED: DICYCLOMINE HCL 10MG CAPSULE PO PRN (06:45)
[2024-06-22] MEDS ORDERED: METOCLOPRAMIDE HCL 5MG TABLET PO PRN (06:45)
[2024-06-22] MEDS: PIPERACILLIN/TAZO 3.375G/50ML 50 ML IV NR (06:47)
[2024-06-22 08:00] VITALS: BP 128/75; PULSE 68; RESP 16; TEMP 36.8; O2SAT 88
[2024-06-22] MEDS: DOCUSATE SODIUM 100MG CAPSULE PO SCH (10:09)
[2024-06-22 10:12] LABS: BASOPHILS % 0.3 % (0.0-2.0); EOSINOPHILS % 0.1 % (0.0-5.0); HEMOGLOBIN. 16.6 g/dL (14.0-18.0); LYMPHOCYTES % 20.1 % (20.0-50.0); MEAN CORPUSCULAR HGB CONC 31.9 g/dL (31.0-37.0); MEAN CORPUSCULAR VOLUME 84.6 fL (80.0-94.0); NEUTROPHILS % 70.5 % (40.0-76.0); PLATELET 280 x1000/uL (130-400); RED BLOOD CELL COUNT 6.14 mill/uL (4.7-6.1); RED CELL DISTRIBUTION WIDTH 14.3 % (11.6-14.6); WHITE BLOOD COUNT 11.9 x1000/uL (4.5-11.0)
[2024-06-22 10:25] LABS: CHLORIDE 99 mEq/L (98-107); POTASSIUM 3.9 mEq/L (3.5-5.1); SODIUM 138 mEq/L (136-145)
[2024-06-22 10:26] LABS: CARBON DIOXIDE 30 mEq/L (21-32)
[2024-06-22 10:31] LABS: CREATININE 1.3 mg/dL (0.6-1.3); GLUCOSE 93 mg/dL (70-105)
[2024-06-22 10:32] LABS: CREATINE KINASE MB FRACTION 1.4 ng/mL (0.5-3.6); UREA NITROGEN BLOOD 13 mg/dL (9-23)
[2024-06-22 10:33] LABS: CREATINE KINASE 873 IU/L (46-171)
[2024-06-22 12:00] VITALS: BP 131/80; PULSE 50; RESP 13; TEMP 37.2; O2SAT 98
[2024-06-22] MEDS: EZ-HD SUSPENSION(BARIUM SULFATE 340GM) PO ONE ×2 (14:39→14:41)
[2024-06-22] MEDS: BARIUM SULFATE 450ML ORAL SUSP ONE (14:40)
[2024-06-22 16:00] VITALS: BP 130/77; PULSE 44; RESP 18; TEMP 37.2; O2SAT 99
[2024-06-22] MEDS: DEXT 5%/0.45% NACL 1000ML 1,000 ML IV SCH (16:59)
[2024-06-22 17:41] LABS: CLARITY URINE CLEAR (CLEAR); COLOR URINE DARK YELLOW (YELLOW); GLUCOSE URINE NEGATIVE (NEGATIVE); KETONES URINE 2+ (NEGATIVE); LEUKOCYTE ESTERASE URINE NEGATIVE (NEGATIVE); NITRITE URINE NEGATIVE (NEGATIVE); OCCULT BLOOD URINE NEGATIVE (NEGATIVE); PROTEIN URINE 1+ (NEGATIVE); SPECIFIC GRAVITY URINE 1.072 (1.005-1.030)
[2024-06-22] MEDS ORDERED: IPRATROPIUM/ALBUTEROL 0.5-3(2.5)MG/3ML NEB HHN SCH (18:00)
[2024-06-22 18:07] LABS: *AMPHETAMINES SCREEN URINE NEGATIVE (NEGATIVE); *BARBITURATES SCREEN URINE NEGATIVE (NEGATIVE); *BENZODIAZEPINES SCREEN URINE NEGATIVE (NEGATIVE); *COCAINE SCREEN URINE NEGATIVE (NEGATIVE); CANNABINOID URINE SCREEN PRESUMPTIVE POSITIVE (NEGATIVE); ECSTASY MDMA SCREEN URINE NEGATIVE (NEGATIVE); METHADONE URINE SCREEN NEGATIVE (NEGATIVE); OPIATES URINE SCREEN NEGATIVE (NEGATIVE); PHENCYCLIDINE URINE SCREEN NEGATIVE (NEGATIVE)
[2024-06-22] MEDS: KETOROLAC 15MG/ML VIAL IV PRN (18:44)
[2024-06-22 20:00] VITALS: BP 130/70; PULSE 50; RESP 19; TEMP 36.9; O2SAT 99
[2024-06-22 20:55] LABS: CREATINE KINASE MB FRACTION 0.8 ng/mL (0.5-3.6)
[2024-06-23] VITALS: BP 121/83; PULSE 52; RESP 18; TEMP 36.6; O2SAT 99
[2024-06-23 01:58] LABS: BACTERIA URINE TRACE; RBC URINE NONE SEEN /hpf (0-2); SQUAMOUS EPITHELIAL CELL URINE RARE /lpf (RARE/1+); WBC URINE 0-2 /hpf (0-2)
[2024-06-23 04:00] VITALS: BP 106/70; PULSE 69; RESP 19; TEMP 36.5; O2SAT 98
[2024-06-23 06:55] LABS: HEMOGLOBIN 14.9 g/dL (14.0-18.0); MEAN CORPUSCULAR HEMOGLOBIN 27.5 pg (28.0-32.0); MEAN CORPUSCULAR HGB CONC 32.4 g/dL (31.0-37.0); MEAN CORPUSCULAR VOLUME 84.9 fL (80.0-94.0); PLATELET 258 x1000/uL (130-400); RED BLOOD CELL COUNT 5.42 mill/uL (4.7-6.1); WHITE BLOOD COUNT 7.9 x1000/uL (4.5-11.0)
[2024-06-23 06:56] LABS: CHLORIDE 102 mEq/L (98-107); POTASSIUM 3.5 mEq/L (3.5-5.1); SODIUM 140 mEq/L (136-145)
[2024-06-23 06:57] LABS: CALCIUM 9.2 mg/dL (8.7-10.4); CARBON DIOXIDE 29 mEq/L (21-32)
[2024-06-23 07:02] LABS: CREATININE 1.2 mg/dL (0.6-1.3); GLUCOSE 93 mg/dL (70-105)
[2024-06-23 07:03] LABS: UREA NITROGEN BLOOD 12 mg/dL (9-23)
[2024-06-23 07:05] LABS: PHOSPHORUS 3.5 mg/dL (2.5-4.9)
== END 2024-06-23 09:00 | disposition left against medical advice (07) | DRG 241 ==
LOC: ER 20:08 → EDBEDREQ 22:15 → 3WST 23:51 → EDBEDREQ 23:57 → EDBEDREQSVC 23:57 → EDBEDREQTM 23:57
PROVIDERS: ADMIT Hospitalist; ATTEND Hospitalist
DX: K29.70 Gastritis, unspecified, without bleeding (principal); K22.6 Gastro-esophageal laceration-hemorrhage syndrome; J98.2 Interstitial emphysema; R11.2 Nausea with vomiting, unspecified; E87.6 Hypokalemia; F17.210 Nicotine dependence, cigarettes, uncomplicated; J45.909 Unspecified asthma, uncomplicated; K59.00 Constipation, unspecified; Z53.29 Procedure and treatment not carried out because of patient's decision for other reasons
CPT/HCPCS: 36415; 71045; 71260; 74018; 74177; 74220; 80048; 80076; 80305; 80320; 81003; 82550; 82553; 83735; 84100; 85025; 85027; 99285; J1885; J2405; J2470; J2543; J7030; G0480